=== PATIENT | female | born 1960 | race Two or more races ===

== ENCOUNTER 2019-12-11 13:57 | Emergency (ER) | payer OTHER ==
[~2019-12-11] VITALS: Ht 157.5 cm; Wt 73.5 kg
[~2019-12-11 13:57] MED LIST: SYNTHROID200 MCG
== END 2019-12-11 23:36 | disposition home or self-care (01) ==
LOC: ER 13:57
DX: K57.90 Diverticulosis of intestine, part unspecified, without perforation or abscess without bleeding (principal); R10.32 Left lower quadrant pain; Z03.818 Encounter for observation for suspected exposure to other biological agents ruled out

== ENCOUNTER → 2020-10-20 | Emergency (ER) | payer OTHER ==
[~2020-10-20] VITALS: Ht 157.5 cm; Wt 76.7 kg
[~2020-10-20] MED LIST changes: +CARAFATE1 GM PO; +PEPCID AC20 MG PO
== END | disposition home or self-care (01) ==
LOC: ER 16:04
DX: K29.70 Gastritis, unspecified, without bleeding (principal); R10.13 Epigastric pain; E86.0 Dehydration

== ENCOUNTER 2021-10-01 05:30 | Emergency (ER) | payer OTHER ==
[~2021-10-01] VITALS: Ht 157.5 cm; Wt 74.8 kg
[2021-10-01] MEDS ORDERED: LISINOPRIL2.5 MG (05:47)
== END 2021-10-01 15:21 | disposition home or self-care (01) ==
LOC: ER 05:30
DX: K29.70 Gastritis, unspecified, without bleeding (principal); I10 Essential (primary) hypertension; E03.9 Hypothyroidism, unspecified

== ENCOUNTER 2022-01-23 14:14 | Inpatient (IN) | payer OTHER ==
[~2022-01-23] VITALS: Ht 157.5 cm; Wt 79.4 kg
[~2022-01-23 14:14] MED LIST changes: +LISINOPRIL2.5 MG
--- NOTE | 2022-01-23 15:10 | NUR ---
FEMINA DE 61 ANOS VERBALIZA SENTIR MARREO Y DOLOR ABDOMINAL. PTE SE OBSERVA CON ABDOMEN DISTENDIDO. PTE SE OBSERVA A/O X3. PTE SE LE REALIZA EKG Y ES VISTO POR DR MORRISON.
--- NOTE | 2022-01-23 15:55 | NUR ---
PTE ALERTA,ESTABLE Y ORIENTADA.SE EDUCA SOBRE EL TRATAMIENTO QUE RECIBIRA EN EL HOSPITAL Y ESTA REFIERE ENTENDER.SE LE JAMARI MUESTRAS TAMARA ORDEN MEDICA
--- NOTE | 2022-01-23 22:36 | NUR ---
SE REBOCA CULLEN DE PTE POR ORDEN MEDICA IS. ESTA [place]DE[place], SE ORIENTA PTE SOBRE NUEVAS ORDENES DE [place] REFIERE COMPRENDER. SE CANALIZA VENA BAJO MEDIDAS ASEPTICAS, PATENTE JUDY DE EDEMA Y ERITEMA. SE ADMINISTRAN LIQUIDOS INTRAVENOSOS, TAMARA ORDEN MEDICA. SE ENTREGA CONTRASTE ORAL Y SE ORIENTA SOBRE INGESTA. SE NOTIFICA A RADIOLOGIA SOBRE ESTUDIO. PENDIENTE INSERCION DE NGT, LUEGO DE REALIZACION DE ESTUDIO.
--- NOTE | 2022-01-24 05:34 | NUR ---
SE RECIB EPTE ALERTA Y ORIENTADA X3 EN TATIANNA CON BARANDAS ELEVADAS. PTE CON IV FLUIDS COLOCADO Y TOMANDO CONTRASTE PO PARA ESTUDIO DE CT ABDOMINO/PELVICO. PTE CON ORDEN DE TUBO NGT PENDIENTE. PTE SE CONTINUA MONITORIANDO POR CAMBIOS.
== END 2022-01-28 21:42 | disposition home or self-care (01) | DRG 392 ==
LOC: ER 14:14 → MEDI 01-24 22:33 → MEDJ 01-24 22:33 → MEDI 01-24 22:51
PROVIDERS: ADMIT Internal Medicine; ATTEND Internal Medicine
DX: K57.30 Diverticulosis of large intestine without perforation or abscess without bleeding (principal); R18.8 Other ascites; N39.0 Urinary tract infection, site not specified; I31.39 Other pericardial effusion (noninflammatory); K52.89 Other specified noninfective gastroenteritis and colitis; B96.89 Other specified bacterial agents as the cause of diseases classified elsewhere; Z20.822 Contact with and (suspected) exposure to COVID-19

== ENCOUNTER 2023-03-24 09:16 | Emergency (ER) | payer OTHER ==
[~2023-03-24] VITALS: Ht 157.5 cm; Wt 73.5 kg
[2023-03-24] MEDS ORDERED: COZAAR25 MG PO (09:54)
[2023-03-24] MEDS ORDERED: ACETAMINOPHEN 500 MG GEL..CAP PO STA (10:30)
[2023-03-24] MEDS ORDERED: BUDESONIDE 0.5 MG/2 ML AMPUL.NEB IH STA (10:31)
[2023-03-24] MEDS ORDERED: ALBUTEROL SULFATE 3 ML/2.5 MG AMPUL.NEB IH STA (10:31)
[2023-03-24 11:22] LABS: HEMATOCRIT 34.4 % (36.0-45.00); HEMOGLOBIN 11.6 g/dL (12.0-15.00); MEAN CELL VOLUME 86.4 fL (80.00-100.00); MEAN CORPUSCULAR HEMOGLOBIN 29.1 pg (27.00-32.0); MEAN CORPUSCULAR HGB CONC 33.7 g/dl (32.0-36.0); PLATELET COUNT 206 K/uL (150-450); RED BLOOD COUNT 3.98 M/uL (4.00-6.00); RED CELL DISTRIBUTION WIDTH 13.6 % (11.5-14.5)
== END 2023-03-24 13:23 | disposition home or self-care (01) ==
LOC: ER 09:16
PROVIDERS: Emergency Medicine
DX: J40 Bronchitis, not specified as acute or chronic (principal); J00 Acute nasopharyngitis [common cold]; Z20.822 Contact with and (suspected) exposure to COVID-19; I10 Essential (primary) hypertension

== ENCOUNTER 2023-04-19 17:24 | Emergency (ER) | payer OTHER ==
[~2023-04-19] VITALS: Ht 157.5 cm; Wt 72.6 kg
[~2023-04-19 17:24] MED LIST changes: +COZAAR25 MG PO
[2023-04-19] MEDS ORDERED: KETOROLAC TROMETHAMINE 30 MG VIAL IM STA (20:43)
[2023-04-19] MEDS ORDERED: DICLOFENAC POTA50 MG PO (22:15)
== END 2023-04-19 22:36 | disposition home or self-care (01) ==
LOC: ER 17:24
DX: M25.562 Pain in left knee (principal); E03.9 Hypothyroidism, unspecified; I10 Essential (primary) hypertension; M17.12 Unilateral primary osteoarthritis, left knee

== ENCOUNTER 2023-04-28 10:24 | Outpatient (CLI) | payer OTHER ==
[~2023-04-28 10:24] MED LIST changes: +DICLOFENAC POTA50 MG PO
== END 2023-04-28 10:30 | disposition home or self-care (01) ==
LOC: SONOGRAMA 10:24
DX: M25.562 Pain in left knee (principal); R10.2 Pelvic and perineal pain

== ENCOUNTER 2023-09-26 10:52 | Outpatient (CLI) | payer OTHER | END 2023-09-26 10:57 | disposition home or self-care (01) | LOC: SONOGRAMA 10:52 | PROVIDERS: ATTEND Student in an Organized Health Care Education/Training Program | DX: E04.1 Nontoxic single thyroid nodule (principal) ==

== ENCOUNTER 2023-12-06 10:57 | Outpatient (CLI) | payer OTHER | END 2023-12-06 11:02 | disposition home or self-care (01) | LOC: SONOGRAMA 10:57 | DX: R10.2 Pelvic and perineal pain (principal); Z11.3 Encounter for screening for infections with a predominantly sexual mode of transmission ==

== ENCOUNTER 2024-02-21 15:52 | Emergency (ER) | payer OTHER ==
[~2024-02-21] VITALS: Ht 157.5 cm; Wt 68.0 kg
[2024-02-21] MEDS ORDERED: HYZAAR 100-251 EACH (16:08)
[2024-02-21 16:09] VITALS: BP 150/72; O2SAT 96
[2024-02-21] MEDS ORDERED: DICYCLOMINE HCL 10 MG CAPSULE PO ONE (16:58)
[2024-02-21] MEDS ORDERED: FAMOTIDINE/PF 20 MG/2 ML VIAL ONE (16:58)
[2024-02-21] MEDS ORDERED: DICYCLOMINE HCL 20 MG TABLET PO ONE (17:00)
[2024-02-21] MEDS ORDERED: FAMOtidine 10 MG/ML (4ML VIAL) IV ONE (17:00)
[2024-02-21] MEDS ORDERED: 0.9 % SODIUM CHLORIDE 1,000 ML IV ONE (17:00)
[2024-02-21 18:06] LABS: HEMATOCRIT 36.6 % (36.0-45.00); HEMOGLOBIN 12.6 g/dL (12.0-15.00); MEAN CELL VOLUME 85.9 fL (80.00-100.00); MEAN CORPUSCULAR HEMOGLOBIN 29.5 pg (27.00-32.0); MEAN CORPUSCULAR HGB CONC 34.4 g/dl (32.0-36.0); PLATELET COUNT 259 K/uL (150-450); RED BLOOD COUNT 4.27 M/uL (4.00-6.00); RED CELL DISTRIBUTION WIDTH 13.3 % (11.5-14.5)
[2024-02-21 18:34] LABS: ALBUMIN 3.6 gm/dL (3.4-5.0); BILIRUBIN TOTAL 0.2 mg/dL (0.3-1.2); CALCIUM 9.7 mg/dL (8.5-10.1); CREATININE SERUM 0.78 mg/dL (0.55-1.02); GFR 74.59; GLOBULINA 4.5 G/DL (2.4-3.5); POTASSIUM 3.66 mEq/L (3.5-5.1); TOTAL PROTEIN 8.1 gm/dL (6.4-8.2)
[2024-02-21 20:22] LABS: PH,URINE 6.5 (5.0-8.0); URINE APPEARANCE Cloudy; URINE BILIRRUBIN Negative (NEGATIVE); URINE BLOOD Negative; URINE COLOR Yellow; URINE GLUCOSE Negative (NEGATIVE); URINE KETONE Negative (NEGATIVE); URINE LEUKOCYTE Large; URINE NITRATE Negative; URINE PROTEIN Negative (NEGATIVE); URINE UROBILINOGEN 0.2 E.U./dl
[2024-02-21 20:23] LABS: URINE BACTERIA 772.1 uL (0.0-1933); URINE EPITHELIAL CELLS 31.1 uL (0.0-38.8); URINE WBC 208.1 uL (0.0-23.2)
[2024-02-21 20:27] LABS: URINE RBC 1.6 uL (0.0-20.8)
[2024-02-21] MEDS ORDERED: BACTRIM DS TAB1 EACH PO (21:36)
[2024-02-21] MEDS ORDERED: PEPCID AC20 MG PO (21:36)
[2024-02-21] MEDS ORDERED: KETO10TA2 PO (21:36)
[2024-02-21] MEDS ORDERED: TAMS0.4C PO (21:36)
== END 2024-02-21 21:43 | disposition home or self-care (01) ==
LOC: ER 15:52
PROVIDERS: General Practice
DX: N39.0 Urinary tract infection, site not specified (principal); K57.30 Diverticulosis of large intestine without perforation or abscess without bleeding; I10 Essential (primary) hypertension; E03.9 Hypothyroidism, unspecified

== ENCOUNTER 2024-04-25 11:08 | Outpatient (CLI) | payer OTHER ==
[~2024-04-25 11:08] MED LIST changes: +BACTRIM DS TAB1 EACH PO; +HYZAAR 100-251 EACH; +KETO10TA2 PO; +TAMS0.4C PO
== END 2024-04-25 11:14 | disposition home or self-care (01) ==
LOC: SONOGRAMA 11:08
DX: R13.10 Dysphagia, unspecified (principal)

== ENCOUNTER 2025-01-21 18:04 | Emergency (ER) | payer OTHER ==
[~2025-01-21] VITALS: Ht 157.5 cm; Wt 73.0 kg
[2025-01-21] MEDS ORDERED: KETOROLAC TROMETHAMINE 30 MG VIAL IM ONE (19:45)
[2025-01-21] MEDS ORDERED: CETIRIZINE HCL 5 MG/5 ML ML PO ONE (19:45)
[2025-01-21] MEDS ORDERED: ORPHENADRINE CITRATE 30 MG/ML AMPUL IM ONE (19:45)
[2025-01-21] MEDS ORDERED: ENALAPRILAT DIHYDRATE 1.25 MG/ML VIAL IV ONE ×2 (19:45→22:44)
[2025-01-21] MEDS ORDERED: NIFEDIPINE 10 MG CAPSULE PO ONE ×2 (19:45→22:44)
[2025-01-21] MEDS ORDERED: KETOROLAC TROMETHAMINE 30 MG VIAL ONE (22:44)
[2025-01-21] MEDS ORDERED: ORPHENADRINE CITRATE 30 MG/ML AMPUL ONE (22:44)
[2025-01-21] MEDS ORDERED: CETIRIZINE HCL 5MG/5ML BLIST.PACK PO ONE (22:45)
[2025-01-22 00:28] LABS: BASO % 0.5 % (0.1-1.2); EOS # 0.22 (0.04-0.54); EOS % 3.6 % (0.7-7.0); LYMPH # 2.63 (1.18-3.74); LYMPH % 42.6 % (19.3-53.1); MEAN PLATELET VOLUME 9.60 fl (9.4-12.4); MONO # 0.57 (0.24-0.82); MONO % 9.2 % (4.7-12.5); NEUT # 2.71 (1.56-6.13); NEUT % 43.9 % (34.0-71.1); RED CELL DISTRIBUTION WIDTH 13.2 % (11.6-14.4)
[2025-01-22] MEDS ORDERED: KETO10TA2 PO (02:06)
[2025-01-22] MEDS ORDERED: NORFLEX100MG PO (02:06)
[2025-01-22 04:08] LABS: COVID-19 AG NEGATIVE (NEGATIVE)
== END 2025-01-22 02:17 | disposition home or self-care (01) ==
LOC: ER 18:13
PROVIDERS: General Practice
DX: M62.838 Other muscle spasm (principal); M54.2 Cervicalgia; M54.59 Other low back pain; I10 Essential (primary) hypertension; E03.8 Other specified hypothyroidism; R09.81 Nasal congestion; Z20.822 Contact with and (suspected) exposure to COVID-19